=== PATIENT | male | born 1950 | race Caucasian/White ===

== ENCOUNTER 2016-11-11 11:56 | Emergency (ER) | payer MEDICARE, OTHER ==
--- NOTE | 2016-11-11 12:13 | EDM.PDOC ---
ED HPI GENERAL MEDICAL PROBLEM - General Chief Complaint: Trauma Stated Complaint: ARM PAIN Time Seen by Provider: 11/11/16 11:59 Source of Information: Reports: Patient, RN, RN Notes Reviewed History Limitations: Reports: No Limitations - History of Present Illness INITIAL COMMENTS - FREE TEXT/NARRATIVE: Patient presents emergency room at [facility] after he sustained an injury to the right forearm. 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 The patient denies any previous injury or trauma. The patient denies any numbness tingling or paresthesia to the affected extremity. The patient complains of pain along the lateral right forearm. No previous surgeries to the affected site. No elbow pathology. No wrist pathology. Onset: Today Onset Date: 11/11/16 Onset Time: 11:20 Right Lower Arm Pain Score (Numeric/FACES): 5 - Related Data Allergies Allergy/AdvReac Type Severity Reaction Status Date / Time No Known Allergies Allergy Verified 11/11/16 12:37 Home Meds: Home Meds Warfarin [Coumadin] 5 mg PO MOWEFR 11/11/16 [History] Review of Systems - Review of Systems Review Of Systems: See Below Constitutional: Denies: Chills, Fever, Weakness Respiratory: Denies: Shortness of Breath, Cough Cardiovascular: Denies: Chest Pain, Lightheadedness Musculoskeletal: Reports: Arm Pain (right lateral forearm) Skin: Reports: No Symptoms Neurological: Reports: No Symptoms. Denies: Numbness, Paresthesia, Tingling Trauma Exam - Physical Exam Exam: See Below Exam Limited By: No Limitations General Appearance: Reports: Alert, No Apparent Distress Head: Reports: Atraumatic, Normocephalic Respiratory Exam: Reports: No Respiratory Distress, Lungs Clear, Normal Breath Sounds Cardiovascular: Reports: Regular Rate, Rhythm Extremities: Pain with Movement, Tenderness Neurologic: Reports: Alert, Oriented x 3 Skin: Reports: Normal Color, Warm/Dry - Konstantin Coma Score Best Eye Response (Konstantin): (4) Open Spontaneously Best Verbal Response ([place]): (5) Oriented Best Motor Response ([place]): (6) Obeys Commands [place] Total: 15 ED TRAUMA EXTREMITY PROCEDURES - Splinting Right Upper Extremity Pre-procedure NV status: normal Post-procedure NV status: normal Splint material: fiberglass Splint design: sugar tong, sling Applied & form fitted by: provider Provider post-splint application NV check: NV status normal, good position Complications: No Course - Vital Signs Last Recorded V/S: Last Vital Signs Temp 36.1 C 11/11/16 12:05 Pulse 63 11/11/16 12:05 Resp 16 11/11/16 12:05 BP 139/77 11/11/16 12:05 Pulse Ox 97 11/11/16 12:05 - Orders/Labs/Meds Orders: Active Orders 24 hr Category Date Time Status Forearm 2V Rt [CR] Stat Exams 11/11/16 12:13 Taken Departure - Departure Time of Disposition: 13:12 Disposition: Home, Self-Care 01 Condition: good Clinical Impression: Distal radius fracture, right Qualifiers: Encounter type: initial encounter Fracture type: closed Fracture morphology: unspecified fracture morphology Qualified Code(s): S52.501A - Unspecified fracture of the lower end of right radius, initial encounter for closed fracture Ulna distal fracture Qualifiers: Encounter type: initial encounter Fracture type: closed Fracture morphology: unspecified fracture morphology Laterality: right Qualified Code(s): S52.601A - Unspecified fracture of lower end of right ulna, initial encounter for closed fracture Foreign body of hand, right Qualifiers: Encounter type: initial encounter Qualified Code(s): S60.551A - Superficial foreign body of right hand, initial encounter - Discharge Information Instructions: Ulnar Fracture, Radial Fracture Referrals: Karoline Millard DO [Primary Care Provider] - Forms: ED Department Discharge Additional Instructions: 1. Keep right arm elevated when not in use 2. Wear sling at all times, may take off when sleeping or resting 3. May alternate Tylenol/Advil as needed for pain 4. Keep applying ice several times a day 5. [facility] will contact you to set up the appointment for this Saturday to see the surgeon 6. Call with any questions ED Communication - ED Communication Date/Time Date: 11/11/16 Time Called: 13:10 - Discussed Case With (1) Person/s Notified (1): Melvin Castillo - Conversation Summary Summary Comment: Case discussed with Dr. Melvin Castillo, Hand surgeon. Recommend placing the patient in a sugar tong splint and see Dr. Castillo in clinic this Saturday for further evaluation. - Problem List Review Problem List Initiated/Reviewed/Updated: Yes - My Orders Last 24 Hours: My Active Orders 11/11/16 12:13 Forearm 2V Rt [CR] Stat - Assessment/Plan Last 24 Hours: My Active Orders 11/11/16 12:13 Forearm 2V Rt [CR] Stat
[2016-11-11 12:37] VITALS: BP 139/77
== END 2016-11-11 13:40 | disposition home or self-care (01) ==
LOC: VM.ED 11:56
DX: S52.501A Unspecified fracture of the lower end of right radius, initial encounter for closed fracture (principal); S52.601A Unspecified fracture of lower end of right ulna, initial encounter for closed fracture; S60.551A Superficial foreign body of right hand, initial encounter; Z79.01 Long term (current) use of anticoagulants; W55.82XA Struck by other mammals, initial encounter; Y93.89 Activity, other specified
CPT/HCPCS: 29125; 73090-RT; 99283; 99283-GF-25

== ENCOUNTER 2017-02-03 01:24 | Emergency (ER) | payer MEDICARE, OTHER ==
--- NOTE | 2017-02-03 01:35 | EDM.PDOC ---
ED HPI GENERAL MEDICAL PROBLEM - General Chief Complaint: Upper Extremity Injury/Pain Stated Complaint: right shoulder pain Time Seen by Provider: 02/03/17 01:35 Source of Information: Reports: Patient, Family, RN, RN Notes Reviewed History Limitations: Reports: No Limitations - History of Present Illness INITIAL COMMENTS - FREE TEXT/NARRATIVE: Patient presents to the ED at [facility] complaining of right shoulder pain with bruising around the right bicep extending down into the right inner forearm. Patient also states he has bruising around the right lateral chest wall. Patient denies any trauma or injury. He states he was able to use his RUE without problems for most of the day today. He noticed this evening his right shoulder seem to "freeze up" and is not able to move it very well. Patient is currently taking Coumadin. Patient denies any numbness, tingling, or paresthesia of any extremity. Has very limited PROM. No obvious bone deformity. No evidence of any acute injury. Patient states he was pulling weeds in a field earlier today, which he think may be the DONELL, but he is not sure. Onset: Today Onset Date: 02/02/17 Duration: Getting Worse, Waxing/Waning Location: Reports: Upper Extremity, Right Quality: Reports: Throbbing Severity: Moderate Improves with: Reports: Rest Worsens with: Reports: Movement Context: Denies: Activity, Exercise, Lifting, Sick Contact, Trauma Associated Symptoms: Reports: No Other Symptoms Right Shoulder Pain Score (Numeric/FACES): 8 - Related Data Allergies Allergy/AdvReac Type Severity Reaction Status Date / Time No Known Allergies Allergy Verified 02/03/17 01:26 Home Meds: Home Meds Warfarin [Coumadin] 5 mg PO MOWEFR 11/11/16 [History] Past Medical History - Past Surgical History Cardiovascular Surgical History: Reports: Valve Replacement Other Cardiovascular Surgeries/Procedures: has a mechanical aortic valve Social & Family History - Tobacco Use Smoking Status *Q: Never Smoker Review of Systems - Review of Systems Review Of Systems: See Below Constitutional: Denies: Chills, Fever, Weakness Respiratory: Denies: Shortness of Breath, Cough Cardiovascular: Denies: Chest Pain, Palpitations Musculoskeletal: Reports: Shoulder Pain, Muscle Pain, Muscle Stiffness Skin: Reports: Bruising (right bicep, right lateral chest wall; right inner forearm) Neurological: Reports: No Symptoms. Denies: Headache, Numbness, Paresthesia, Tingling ED EXAM, GENERAL - Physical Exam Exam: See Below Exam Limited By: No Limitations General Appearance: Alert, No Apparent Distress Respiratory/Chest: No Respiratory Distress, Lungs Clear, Normal Breath Sounds Cardiovascular: Regular Rate, Rhythm Peripheral Pulses: 2+: Radial (L), Radial (R) Extremities: Normal Capillary Refill, Limited Range of Motion, Other ( tenderness of right shoulder; unable to fully evaluate ROM due to pain) Neurological: Alert, Oriented Skin Exam: Warm, Dry, Intact, Normal Color, No Rash, Ecchymosis (right bicep; right lateral chest wall; right inner forearm) Course - Vital Signs Last Recorded V/S: Last Vital Signs Temp 34.7 C L 02/03/17 01:28 Pulse 67 02/03/17 01:28 Resp 20 02/03/17 01:28 BP 160/113 H 02/03/17 01:28 Pulse Ox 97 02/03/17 01:28 - Orders/Labs/Meds Orders: Active Orders 24 hr Category Date Time Status Shoulder Comp Rt [CR] Stat Exams 02/03/17 01:41 Taken INR,PT,PROTHROMBIN TIME [COAG] Stat Lab 02/03/17 01:59 Received Labs: Laboratory Tests 02/03/17 Range/Units 01:59 WBC 5.4 (4.0-10.0) x10^3/uL RBC 4.47 L (4.5-6.0) x10^6/uL Hgb 12.9 L (14.0-18.0) g/dL Hct 38.2 L (40.0-52.0) % MCV 85.5 (78.0-93.0) fL MCH 28.9 (26.0-32.0) pg MCHC 33.8 (32.0-36.0) g/dL RDW Coeff of [place] 13.9 (10.0-15.0) % Plt Count 226 (130-400) x10^3/uL Neut % (Auto) 58.0 (50.0-80.0) % Lymph % (Auto) 24.3 L (25.0-50.0) % [place] % (Auto) 12.8 H (2.0-11.0) % Eos % (Auto) 4.3 H (0.0-4.0) % Baso % (Auto) 0.6 (0.2-1.2) % Meds: Medications Discontinued Medications Generic Name Dose Route Start Last Admin Trade Name Mamadou PRN Reason Stop Dose Admin Lidocaine HCl 5 ml 02/03/17 02:07 02/03/17 02:13 Xylocaine-Mpf 4% INJECT 02/03/17 02:08 5 ml ONETIME ONE Administration Methylprednisolone Acetate 40 mg 02/03/17 02:07 02/03/17 02:13 Depo-Medrol IM 02/03/17 02:08 40 mg ONETIME ONE Administration - Radiology Interpretation Free Text/Narrative:: Right Shoulder: Mild osteoarthritis of the AC Joint and Glenohumeral joint Departure - Departure Time of Disposition: 02:26 Disposition: Home, Self-Care 01 Condition: Good Clinical Impression: Right shoulder pain Qualifiers: Chronicity: acute Qualified Code(s): M25.511 - Pain in right shoulder Osteoarthritis of right shoulder Qualifiers: Osteoarthritis type: primary Qualified Code(s): M19.011 - Primary osteoarthritis, right shoulder - Discharge Information Instructions: Shoulder Pain Referrals: Karoline Millard DO [Physician] - Forms: ED Department Discharge Additional Instructions: 1. Stay well hydrated and rest 2. Move right shoulder as much as possible to keep in limber 3. Take pain medication sparingly; it can make you drowsy 4. See your Primary this week, you may need an MRI - Problem List Review Problem List Initiated/Reviewed/Updated: Yes - My Orders Last 24 Hours: My Active Orders 02/03/17 01:41 Shoulder Comp Rt [CR] Stat 02/03/17 01:59 INR,PT,PROTHROMBIN TIME [COAG] Stat - Assessment/Plan Last 24 Hours: My Active Orders 02/03/17 01:41 Shoulder Comp Rt [CR] Stat 02/03/17 01:59 INR,PT,PROTHROMBIN TIME [COAG] Stat - Procedure Side: Right Location: Shoulder Site Prep: ChloraPrep Anasthetic: Lidocaine 1% (Lidocaine 4% was used) Medication: Kenalog (DepoMedrol 40mg) Method: Injection Dressing: Adhesive - Post Procedure Tolerated Procedure: Yes
[2017-02-03] MEDS ORDERED: Lidocaine 4% 5 ML Amp INJECT ONE (02:07)
[2017-02-03] MEDS ORDERED: methylPREDNISolone Acetate 40 MG/ML SDV IM ONE (02:07)
[2017-02-03] MEDS ORDERED: Take Home: traMADol 50 MG, 4 Tab Pack PO ONE (02:29)
[2017-02-03 02:43] VITALS: BP 156/105
== END 2017-02-03 02:36 | disposition home or self-care (01) ==
LOC: VM.ED 01:24
DX: M19.011 Primary osteoarthritis, right shoulder (principal); Z95.2 Presence of prosthetic heart valve
CPT/HCPCS: 20610; 36415; 73030; 85025; 85610; 99283; 99284; A9270; J1030

== ENCOUNTER 2017-03-21 22:44 | Emergency (ER) | payer MEDICARE, OTHER ==
[2017-03-21] MEDS ORDERED: Triamcinolone Acetonide 40 MG/ML 1 ML MDV INJECT ONE (22:55)
[2017-03-21] MEDS ORDERED: Lidocaine 4% 5 ML Amp INJECT ONE (22:55)
--- NOTE | 2017-03-21 22:56 | EDM.PDOC ---
ED HPI GENERAL MEDICAL PROBLEM - General Chief Complaint: Upper Extremity Injury/Pain Stated Complaint: Right Shoulder Pain Time Seen by Provider: 03/21/17 22:54 Source of Information: Reports: Patient, RN, RN Notes Reviewed History Limitations: Reports: No Limitations - History of Present Illness INITIAL COMMENTS - FREE TEXT/NARRATIVE: Patient presents to the ED at [facility] complaining of severe right shoulder pain with minimal use. 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 Patient states the pain began earlier this evening. He has a history of right shoulder OA and has had previous right shoulder injections. 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: Reports: Other (see below) (None) - Related Data Allergies Allergy/AdvReac Type Severity Reaction Status Date / Time No Known Allergies Allergy Verified 03/21/17 23:00 Home Meds: Home Meds Warfarin [Coumadin] 5 mg PO MOWEFR 11/11/16 [History] Past Medical History - Past Surgical History Cardiovascular Surgical History: Reports: Valve Replacement Other Cardiovascular Surgeries/Procedures: has a mechanical aortic valve Social & Family History - Tobacco Use Smoking Status *Q: Never Smoker Review of Systems - Review of Systems Review Of Systems: See Below Constitutional: Denies: Chills, Fever Respiratory: Denies: Shortness of Breath, Cough Cardiovascular: Denies: Chest Pain, Palpitations Musculoskeletal: Reports: Shoulder Pain, Joint Pain, Joint Swelling, Muscle Pain , Muscle Stiffness Skin: Reports: No Symptoms Neurological: Reports: No Symptoms. Denies: Numbness, Paresthesia, Tingling ED EXAM, GENERAL - Physical Exam Exam: See Below Exam Limited By: No Limitations General Appearance: Alert, No Apparent Distress Respiratory/Chest: No Respiratory Distress, Lungs Clear, Normal Breath Sounds Cardiovascular: Regular Rate, Rhythm Peripheral Pulses: 2+: Radial (L), Radial (R) Extremities: Joint Swelling, Arm Pain, Limited Range of Motion, Other ( Significant swelling of the AC/right shoulder area; very tender to palpation; very limited ROM both passive and active) Neurological: Alert, Oriented ED TRAUMA EXTREMITY PROCEDURES - Additional/Other Procedure(s) Other (Free Text) Procedure(s): Right Shoulder Injection: Procedure thoroughly discussed with patient. Risk and benefits understood and wishes to proceed. Area for injection site marked on posterior right shoulder. Area prepped with Chlorhexadine and alcohol. Total of 1cc 4% Lidocaine with 1cc 40 mg Kenalog injected. Patient tolerated procedure well. Patient states complete relief of right shoulder pain post procedure. No complications. Course - Vital Signs Last Recorded V/S: Last Vital Signs Temp 35.9 C 03/21/17 22:50 Pulse 60 03/21/17 22:50 Resp 16 03/21/17 22:50 BP 144/75 H 03/21/17 22:50 Pulse Ox 97 03/21/17 22:50 - Orders/Labs/Meds Orders: Active Orders 24 hr Category Date Time Status Shoulder wo Cont Rt [CT] Stat Exams 03/21/17 23:00 Taken Meds: Medications Discontinued Medications Generic Name Dose Route Start Last Admin Trade Name Hariq PRN Reason Stop Dose Admin Lidocaine HCl 5 ml 03/21/17 22:55 Xylocaine-Mpf 4% INJECT 03/21/17 22:56 ONETIME ONE Triamcinolone Acetonide 40 mg 03/21/17 22:55 Kenalog-40 INJECT 03/21/17 22:56 ONETIME ONE Departure - Departure Time of Disposition: 00:06 Disposition: Home, Self-Care 01 Condition: Good Clinical Impression: Right shoulder pain Qualifiers: Chronicity: acute Qualified Code(s): M25.511 - Pain in right shoulder Joint effusion of shoulder region Qualifiers: Laterality: right Qualified Code(s): M25.411 - Effusion, right shoulder - Discharge Information Instructions: Shoulder Pain Referrals: Karoline Millard DO [Primary Care Provider] - Forms: ED Department Discharge Additional Instructions: 1. Stay well hydrated and rest 2. Advise to limit use of right shoulder to help with healing 3. May alternate Tylenol/Advil as needed for pain 4. Recommend making an appointment to see Dr. Millard, you may need an MRI of the shoulder 5. Call with any questions - Problem List Review Problem List Initiated/Reviewed/Updated: Yes - My Orders Last 24 Hours: My Active Orders 03/21/17 23:00 Shoulder wo Cont Rt [CT] Stat - Assessment/Plan Last 24 Hours: My Active Orders 03/21/17 23:00 Shoulder wo Cont Rt [CT] Stat
[2017-03-21 22:57] VITALS: BP 144/75
== END 2017-03-22 00:12 | disposition home or self-care (01) ==
LOC: VM.ED 22:44
DX: M25.411 Effusion, right shoulder (principal)
CPT/HCPCS: 20610; 73200; 99283; J3301; 99282-GF-25

== ENCOUNTER 2017-07-02 07:56 | Day surgery (SDC) | payer MEDICARE, OTHER ==
[~2017-07-02 07:56] MED LIST: Lactated Ringers 1,000 ML IV SCH
[2017-07-02] MEDS ORDERED: Propofol 200 MG/20 ML SDV ONE (09:14)
[2017-07-02] MEDS ORDERED: fentaNYL 100 MCG/2 ML SDV ONE (09:14)
[2017-07-02 11:04] VITALS: BP 147/75
--- NOTE | 2017-07-02 12:42 | OR ---
PREOPERATIVE DIAGNOSIS: History of large rectal polyp, removed 5 years previously. POSTOPERATIVE DIAGNOSIS: Normal colonoscopic exam. PROCEDURE PROPOSED AND PROCEDURE DONE: Total flexible colonoscopy. INDICATION: This is a 66-year-old gentleman who had a rather large rectal polyp removed 4-1/2 years ago that was benign, but a precancerous type polyp. He came in being recommended to have a flex sig to look at that area, but I felt that being he nearly 5 years out from that polyp, he really should have his entire colon looked at. We did discuss the fact that he is still on Coumadin and had not stopped that. His INR today was 2.1. He had taken actually a pretty good bowel prep and I felt that if he is clean enough that we should try look at his entire colon, knowing that if there is a large polyp or something we may not be able to remove it today, but if the colon is clear, he would be good for another 5 years from now, and he was understanding, wanted to proceed with that. TECHNIQUE: The patient brought to the endoscopy suite, placed in left lateral decubitus position. He was sedated with MAC anesthesia per [employer]PA[employer] SUPERVISOR. The flexible video colonoscope was then passed transanally and under visualization advanced to the cecum without difficulty. He was quite well cleaned out. Examination revealed a normal ascending, transverse, descending, sigmoid, and rectal colon. There was no evidence of any polyps, colitis, or diverticulosis. I thoroughly inspected the rectum. There were no signs of any local recurrence of the previously removed polyp, and he tolerated the procedure very well, as the scope was then removed. FINAL IMPRESSION: 1. Normal colonoscopic exam. 2. History of prior large rectal polyp. PLAN: I do feel that he should have a colonoscopy every 5 years based on his history of having had a large polyp, and he should have that done a couple more times in his lifetime. SCM: 07/02/2017 10:12:26 MODL: 07/02/2017 12:36:35 /[id number]
== END 2017-07-02 11:06 | disposition home or self-care (01) ==
LOC: VM.SDS 07:56
PROVIDERS: ATTEND Surgery
DX: Z12.11 Encounter for screening for malignant neoplasm of colon (principal); Z86.010 Personal history of colon polyps; Z79.01 Long term (current) use of anticoagulants
CPT/HCPCS: 36415; 85610; G0105; J2704; J3010; J7120

== ENCOUNTER 2019-09-07 20:27 | Emergency (ER) | payer MEDICARE, OTHER ==
[2019-09-07] MEDS: Lidocaine 1% 30 ML SDV INJECT ONE (21:05)
[2019-09-07 21:17] LABS: PTT,PARTIAL THROMBOPLSTIN TIME 30.3 SEC (24.0-36.0)
[2019-09-07 21:19] VITALS: BP 156/76; PULSE 71
[2019-09-07 21:33] LABS: ANION GAP 14.4 mmol/L (10-20)
--- NOTE | 2019-09-07 21:34 | EDM.PDOC ---
ED HPI GENERAL MEDICAL PROBLEM - General Stated Complaint: laceration Time Seen by Provider: 09/07/19 20:30 Source of Information: Reports: Patient History Limitations: Reports: No Limitations - History of Present Illness INITIAL COMMENTS - FREE TEXT/NARRATIVE: Patient comes emergency department today ambulatory with his after a fall at about 1800 hrs. tonight. 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 He only had about 2 or 3 steps left that he recalls. Prior to this what he reports as passing out he was asymptomatic. He has felt well all day. He has had no chest pain or shortness of breath or difficulty breathing. No palpitations weakness dizziness lightheadedness. No fever no chills no cough or congestion. Upon arrival he complains of pain to the right side of his eye where he has a laceration. He has no headache. No change in his visual acuity. No change sensation or functionality of his upper or lower extremities. He denies any head neck or back pain. He has never had an instance like this. 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 He is supposed to have a Holter monitor placed in the near future. He has not had any recent episodes of syncope. He just remembers walking down the steps and then waking up at the bottom of the steps. His last tetanus was about 1 year ago. right forehead Pain Score (Numeric/FACES): 2 - Related Data Allergies Allergy/AdvReac Type Severity Reaction Status Date / Time No Known Allergies Allergy Verified 09/07/19 21:19 Home Meds: Home Meds Warfarin [Coumadin] 5 mg PO MOWEFR 11/11/16 [History] Amoxicillin 2,000 mg PO ASDIRECTED 06/26/17 [History] Ergocalciferol (Vitamin D2) [Vitamin D2] 50,000 unit PO WEEKLY 06/26/17 [History ] Past Medical History HEENT History: Reports: None Cardiovascular History: Reports: High Cholesterol Respiratory History: Reports: None Gastrointestinal History: Reports: Colon Polyp Genitourinary History: Reports: None Musculoskeletal History: Reports: Fracture Neurological History: Reports: None Psychiatric History: Reports: None Endocrine/Metabolic History: Reports: Vitamin D Deficiency Hematologic History: Reports: None Immunologic History: Reports: None Oncologic (Cancer) History: Reports: None Dermatologic History: Reports: None - Past Surgical History Head Surgeries/Procedures: Reports: None HEENT Surgical History: Reports: None Cardiovascular Surgical History: Reports: Valve Replacement Other Cardiovascular Surgeries/Procedures: has a mechanical aortic valve GI Surgical History: Reports: Colonoscopy Musculoskeletal Surgical History: Reports: None Oncologic Surgical History: Reports: None ED ROS GENERAL - Review of Systems Review Of Systems: Comprehensive ROS is negative, except as noted in HPI. - Physical Exam Exam: See Below Exam Limited By: No Limitations General Appearance: Alert, WD/WN, No Apparent Distress Eye Exam: Bilateral Eye: EOMI, Normal Inspection, PERRL (3MM BILAT ) Ears: Normal External Exam, Normal Canal, Normal TMs Nose: Normal Inspection, Normal Mucosa Throat/Mouth: Normal Inspection, Normal Lips, Normal Teeth, Normal Gums, Normal Oropharynx Head Exam: Normocephalic. No: Atraumatic (on the right eyebrow lateral aspect there is an aprox 4 cm vertical irregular stellate like laceration that extends into the subcut tissue. No overt bony deformity. NO active bleeding abrasion surrounding the area. NO crepitus or subcut emphyzema. Rest of the head is atraumatic. ) Neck: Normal Inspection, Supple, Non-Tender, Full Range of Motion. No: Tender Lateral, Tender Midline Respiratory/Chest: No Respiratory Distress, Lungs Clear, Normal Breath Sounds, No Accessory Muscle Use Cardiovascular: Normal Peripheral Pulses, Regular Rate, Rhythm GI/Abdominal: Normal Bowel Sounds, Soft, Non-Tender, No Organomegaly Neuro Exam (Abbreviated): Alert, Oriented, CN II-XII Intact, Normal Cognition, Normal Gait, Normal Reflexes, No Motor/Sensory Deficits Back Exam: Normal Inspection, Full Range of Motion. No: Paraspinal Tenderness, Vertebral Tenderness Extremities: Normal Inspection, Normal Range of Motion, Non-Tender, No Pedal Edema Psychiatric: Normal Affect, Normal Mood Skin Exam: Warm, Dry, Intact, Normal Color, No Rash ED PROCEDURES - Laceration/Wound Repair Right Lower Lac/wound length in cm: 3.5 Appearance: Subcutaneous, Stellate, Irregular, Clean Distal NVT: Neuro & Vascular Intact, No Tendon Injury Anesthetic Type: Local Local Anesthesia - Lidocaine (Xylocaine): 1% Plain Local Anesthetic Volume: 2cc Skin Prep: Chlorhexidine (Hibiciens), Saline Exploration/Debridement/Repair: Wound Explored, In a Bloodless Field, Explored to Base, No Foreign Material Found, Multiple Flaps Aligned Closed with: Sutures Suture Size: 6-0 # of Sutures: 10 Suture Type: Nylon Drain Placement: No Sterile Dressing Applied: Provider Tetanus Status Addressed: Yes Complications: No EKG INTERPRETATION EKG Date: 09/07/19 Time: 20:49 Rhythm: NSR Rate (Beats/Min): 72 [place]: Normal P-Wave: Present QRS: Normal ST-T: Normal QT: Normal Comparison: No Change Course - Vital Signs Last Recorded V/S: Last Vital Signs Temp 36.2 C 09/07/19 20:30 Pulse 71 09/07/19 20:30 Resp 16 09/07/19 20:30 BP 156/76 H 09/07/19 20:30 Pulse Ox 95 09/07/19 20:30 - Orders/Labs/Meds Orders: Active Orders 24 hr Category Date Time Status EKG Documentation Completion [RC] STAT Care 09/07/19 20:34 Active Head wo Cont [CT] Stat Exams 09/07/19 20:33 Taken Labs: Laboratory Tests 09/07/19 09/07/19 09/07/19 Range/Units 20:51 20:51 20:51 WBC 6.0 (4.0-10.0) x10^3/uL RBC 4.91 (4.5-6.0) x10^6/uL Hgb 13.9 L (14.0-18.0) g/dL Hct 42.3 (40.0-52.0) % MCV 86.2 (78.0-93.0) fL MCH 28.3 (26.0-32.0) pg MCHC 32.9 (32.0-36.0) g/dL RDW Coeff of Alexander 14.0 (10.0-15.0) % Plt Count 195 (130-400) x10^3/uL Neut % (Auto) 71.6 (50.0-80.0) % Lymph % (Auto) 14.7 L (25.0-50.0) % [place] % (Auto) 10.2 (2.0-11.0) % Eos % (Auto) 3.0 (0.0-4.0) % Baso % (Auto) 0.5 (0.2-1.2) % PT 24.2 H (10.0-12.8) SEC INR 2.1 (2.0-3.5) APTT 30.3 (24.0-36.0) SEC Sodium 146 H (136-145) mmol/L Potassium 4.4 (3.5-5.1) mmol/L Chloride 106 (98-107) mmol/L Carbon Dioxide 30 (21-32) mmol/L Anion Gap 14.4 (10-20) mmol/L BUN 20 H (7-18) mg/dL Creatinine 1.3 (0.70-1.30) mg/dL Est Cr Clr Drug Dosing 47.31 mL/min Estimated GFR (MDRD) 55 Glucose 101 (74-106) mg/dL Calcium 8.7 (8.5-10.1) mg/dL Corrected Calcium 9.10 (8.5-10.1) mg/dL Total Bilirubin 0.6 (0.2-1.0) mg/dL AST 21 (15-37) U/L ALT 27 (16-63) U/L Alkaline Phosphatase 111 (46-116) U/L Troponin I 0.052 (<=0.056) ng/mL Total Protein 6.9 (6.4-8.2) g/dL Albumin 3.5 (3.4-5.0) g/dL Globulin 3.4 Albumin/Globulin Ratio 1.03 03/ Range/Units 23:00 WBC (4.0-10.0) x10^3/uL RBC (4.5-6.0) x10^6/uL Hgb (14.0-18.0) g/dL Hct (40.0-52.0) % MCV (78.0-93.0) fL MCH (26.0-32.0) pg MCHC (32.0-36.0) g/dL RDW Coeff of [place] (10.0-15.0) % Plt Count (130-400) x10^3/uL Neut % (Auto) (50.0-80.0) % Lymph % (Auto) (25.0-50.0) % [place] % (Auto) (2.0-11.0) % Eos % (Auto) (0.0-4.0) % Baso % (Auto) (0.2-1.2) % PT (10.0-12.8) SEC INR (2.0-3.5) APTT (24.0-36.0) SEC Sodium (136-145) mmol/L Potassium (3.5-5.1) mmol/L Chloride (98-107) mmol/L Carbon Dioxide (21-32) mmol/L Anion Gap (10-20) mmol/L BUN (7-18) mg/dL Creatinine (0.70-1.30) mg/dL Est Cr Clr Drug Dosing mL/min Estimated GFR (MDRD) Glucose (74-106) mg/dL Calcium (8.5-10.1) mg/dL Corrected Calcium (8.5-10.1) mg/dL Total Bilirubin (0.2-1.0) mg/dL AST (15-37) U/L ALT (16-63) U/L Alkaline Phosphatase (46-116) U/L Troponin I 0.054 (<=0.056) ng/mL Total Protein (6.4-8.2) g/dL Albumin (3.4-5.0) g/dL Globulin Albumin/Globulin Ratio Meds: Medications Discontinued Medications Generic Name Dose Route Start Last Admin Trade Name Freq PRN Reason Stop Dose Admin Lidocaine HCl 30 ml 09/07/19 20:58 09/07/19 21:05 Xylocaine-Mpf 1% INJECT 09/07/19 20:59 2.5 ml ONETIME ONE Administration - Radiology Interpretation Free Text/Narrative:: CT of the head per radiology no acute intracranial hemorrhage or process identified. - Re-Assessments/Exams Free Text/Narrative Re-Assessment/Exam: 09/07/19 21:53 Labs are pretty unremarkable. INR is only 2.1 although he has not taken his night time dose of coumadin yet. His troponin although is within normal limits although just below the hi value. His EKG is normal and unchanged from previous and he is without complaints at this time. We will repeat his troponin at 2300 hrs. The patient is comfortable with this plan and his questions answered. Laceration was cleansed and sutured please see procedure note. 09/07/19 23:33 repeat troponin is the same value. NO chest pain. DId monitor him during that time period and he did have some PVCs but not more than what I would say is normal. I still encourage him to get the holter monitor or Zio patch placed. He is comfortable with this plan and his questions answered. Departure - Departure Time of Disposition: 23:30 Disposition: Home, Self-Care 01 Clinical Impression: Syncope and collapse Concussion Qualifiers: Encounter type: initial encounter Loss of consciousness presence/duration: with LOC of 30 min or less Qualified Code(s): S06.0X1A - Concussion with loss of consciousness of 30 minutes or less, initial encounter Laceration of forehead without complication Qualifiers: Encounter type: initial encounter Qualified Code(s): S01.81XA - Laceration without foreign body of other part of head, initial encounter - Discharge Information Instructions: Head Injury, Adult, [id number], Facial Laceration, [id number] , Syncope, [id number] Referrals: Karoline Millard, [Primary Care Provider] - Additional Instructions: Tylenol as needed for pain. Cleanse the wound twice daily with soap and water until healed. Bacitracin and bandage until healed. Sutures out in 5-6 days. Watch for signs of infection. Water may run over the wound but do no soak the laceration in any water. Rest for the next few days due to the head injury. Try to decrease stimulation. Return to the ED if new or worsening symptoms. Follow up with PCP in 5-6 days for suture removal and recheck if any concerns at that time. Consider the Holter monitor placement at that time as well. Sepsis Event Note - Evaluation Sepsis Screening Result: No Definite Risk - Focused Exam Vital Signs: Vital Signs Temp Pulse Resp BP Pulse Ox 09/07/19 20:30 36.2 C 71 16 156/76 H 95 Date Exam was Performed: 09/07/19 Time Exam was Performed: 23:33 - My Orders Last 24 Hours: My Active Orders 09/07/19 20:33 Head wo Cont [CT] Stat 09/07/19 20:34 EKG Documentation Completion [RC] STAT - Assessment/Plan Last 24 Hours: My Active Orders 09/07/19 20:33 Head wo Cont [CT] Stat 09/07/19 20:34 EKG Documentation Completion [RC] STAT Assessment:: Syncope unknown cause. Concussion. Laceration of forehead with suture repair. Plan: Tylenol as needed for pain. Cleanse the wound twice daily with soap and water until healed. Bacitracin and bandage until healed. Sutures out in 5-6 days. Watch for signs of infection. Water may run over the wound but do no soak the laceration in any water. Rest for the next few days due to the head injury. Try to decrease stimulation. Return to the ED if new or worsening symptoms. Follow up with PCP in 5-6 days for suture removal and recheck if any concerns at that time. Consider the Holter monitor placement at that time as well.
--- NOTE | 2019-09-08 16:40 | CT ---
[id number] CT/CT Head WO IV EXAM: CT Head WO IV CLINICAL DATA: TRAUMA ANTICOAGULATED PATIENT COMPARISON: NO PREVIOUS SIMILAR EXAM IS AVAILABLE FOR COMPARISON. FINDINGS: There is no mass or mass effect. There is no hemorrhage or hydrocephalus. There are no extra-axial fluid collections. There are no sites of abnormal attenuation. Submitted for dictation September 07, 4:00 PM IMPRESSION: NO PLAIN CT EVIDENCE OF ACUTE INTRACRANIAL PROCESS. Eliel Frazier MD 09/08/19 [id number] Thank you for allowing us to participate in the care of your patient.
== END 2019-09-07 23:40 | disposition home or self-care (01) ==
LOC: VM.ED 20:27
DX: S06.0X1A Concussion with loss of consciousness of 30 minutes or less, initial encounter (principal); S01.81XA Laceration without foreign body of other part of head, initial encounter; R55 Syncope and collapse; Z79.01 Long term (current) use of anticoagulants; W10.9XXA Fall (on) (from) unspecified stairs and steps, initial encounter
CPT/HCPCS: 12013; 36415; 70450; 80053; 84484; 85025; 85610; 85730; 93005; 93010; 99284-25; 99284-GF; J2001

== ENCOUNTER 2021-11-26 16:25 | Observation (INO) | payer MEDICARE, OTHER ==
[2021-11-26 17:16] LABS: CHLORIDE,CL 107 mmol/L (98-107); SODIUM,NA 144 mmol/L (136-145)
[2021-11-26 17:19] LABS: ANION GAP 13.6 mmol/L (5-15); ESTIMATED GFR 55
[2021-11-26] MEDS ORDERED: fentaNYL 50 MCG/ML SDV IVPUSH ONE (17:23)
[2021-11-26] MEDS ORDERED: Iopamidol 612 MG/ML 100 ML Bottle IVPUSH ONE (17:40)
[2021-11-26] MEDS ORDERED: HYDROmorphone 0.5 MG/0.5 ML Syringe IVPUSH ONE (17:52)
[2021-11-26] MEDS ORDERED: Ibuprofen 200 MG Tab PO PRN (18:21)
[2021-11-26] MEDS ORDERED: Ondansetron 4 MG/2 ML SDV IV PRN (18:21)
[2021-11-26] MEDS ORDERED: Acetaminophen 325 MG Tab PO PRN (18:21)
[2021-11-26] MEDS ORDERED: Sodium Chloride 0.9% 10 ML Syringe FLUSH PRN (18:21)
[2021-11-26] MEDS ORDERED: HYDROmorphone 0.5 MG/0.5 ML Syringe IVPUSH PRN (18:21)
[2021-11-26] MEDS ORDERED: Sodium Chloride 0.9% 1,000 ML IV ONE (18:25)
[2021-11-26] MEDS ORDERED: Warfarin 2.5 MG Tab PO SCH (23:45)
[2021-11-27 07:02] LABS: CHLORIDE,CL 108 mmol/L (98-107); SODIUM,NA 142 mmol/L (136-145)
[2021-11-27 07:03] LABS: ANION GAP 12.2 mmol/L (5-15); ESTIMATED GFR > 60
[2021-11-27 13:39] VITALS: BP 156/67; PULSE 60
[2021-11-27] MEDS ORDERED: Warfarin 5 MG Tab PO SCH (20:00)
[2021-12-20] MEDS ORDERED: Ergocalciferol (Vitamin D2) 1.25 MG Cap PO SCH (09:00)
== END 2021-11-27 14:20 | disposition home or self-care (01) ==
LOC: VM.ED 16:25 → VM.MS 18:11
PROVIDERS: ADMIT Nurse Practitioner; ATTEND Internal Medicine
DX: S20.212A Contusion of left front wall of thorax, initial encounter (principal); E55.9 Vitamin D deficiency, unspecified; R77.8 Other specified abnormalities of plasma proteins; E78.00 Pure hypercholesterolemia, unspecified; Z79.01 Long term (current) use of anticoagulants; Z79.899 Other long term (current) drug therapy; X58.XXXA Exposure to other specified factors, initial encounter
CPT/HCPCS: 36415; 71045; 71275; 80048; 80053; 84484; 85025; 85379; 85610; 93005; 96374; 96375; 96376; 99217; 99220; 99285-25; A9270-GY; G0378; J1170; J3010; J7030; Q9967

== ENCOUNTER 2024-08-07 07:04 | Day surgery (SDC) | payer MEDICARE, OTHER ==
[2024-08-07] MEDS: Lactated Ringers 1,000 ML IV SCH (07:25)
[2024-08-07] MEDS ORDERED: fentaNYL 100 MCG/2 ML SDV ONE (07:44)
[2024-08-07] MEDS ORDERED: Propofol 200 MG/20 ML SDV ONE (07:44)
[2024-08-07 07:48] LABS: PROTHROMBIN TIME 11.2 SEC (9.6-12.0)
[2024-08-07 09:21] VITALS: BP 142/56; PULSE 59
== END 2024-08-07 10:46 | disposition home or self-care (01) ==
LOC: VM.SDS 07:04
PROVIDERS: ATTEND Student in an Organized Health Care Education/Training Program
DX: Z12.11 Encounter for screening for malignant neoplasm of colon (principal); Z86.0100 Personal history of colon polyps, unspecified; Z80.0 Family history of malignant neoplasm of digestive organs; I10 Essential (primary) hypertension; E78.00 Pure hypercholesterolemia, unspecified; Z79.82 Long term (current) use of aspirin; Z79.899 Other long term (current) drug therapy
CPT/HCPCS: 36415; 45380; 45385; 85610; J2704; J3010; J7120; 00811; 88305; 99100